=== PATIENT | male | born 1945 | race Caucasian/White ===

== ENCOUNTER 2023-10-20 11:29 | Day surgery (SDC) | payer MEDICARE, SELFPAY ==
--- NOTE | 2023-10-20 11:48 | FL_ITS ---
[address] [address] Patient Name: FRANCHECSA BUTLER MRN: [id number] date: 1945 Sex: M Assigned Patient Location: [place] Current Patient Location: Accession/Order Number: [id number] Exam Date: 10/20/2023 13:00 Report Date: 10/20/2023 14:52 At the request of: VALE COPE Procedure: FL hip inj RT EXAMINATION: FL hip inj RT HISTORY: Right Hip Osteoarthritis COMPARISON: No relevant comparison available. FLUORO DOSE: At 0.59 minutes. Single image TECHNIQUE: A joint injection was performed in the usual sterile manner after obtaining informed consent. Standard level fluoroscopic mode of operation utilized. FINDINGS: JOINT: Right hip. NEEDLE: 22 gauge, 3.5 spinal needle. MEDICATION: 6 cc 1% buffered lidocaine for subcutaneous anesthesia. 3 mL Omnipaque 240. 40 mg Kenalog. 2 mm 0.5% bupivacaine TECHNIQUE: Anterior approach with prior localization of the femoral artery. A single stick was successful in gaining access to the joint space. CLINICAL: 6 out of 10 pain before the injection. 2 out of 10 pain following the injection COMPLICATIONS: None. OTHER: Negative. FL/FL hip inj RT IMPRESSION: Technically successful right hip arthrogram Electronically authenticated by: TOM NEW Date: 10/20/2023 14:52
[2023-10-20] MEDS: BUPIVACAINE HCL 0.5% PF 50 MG/10 ML VIAL 2 ML INJ (13:20)
[2023-10-20] MEDS: TRIAMCINOLONE ACETONIDE 40 MG/ML VIAL INJ (13:20)
[2023-10-20] MEDS: LIDOCAINE HCL 10 ML, SODIUM BICARBONATE 1 MEQ INJ (13:20)
--- NOTE | 2023-10-20 14:20 | SUR.PREOP ---
10/16/23 Pt instructed on procedure, date, time, and prep. Faxed prep orders to [facility] . They will hold ASA x 3 days prior to procedure.
== END 2023-10-20 13:50 | disposition home or self-care (01) ==
PROVIDERS: Radiology Diagnostic Radiology; Visit Provider Orthopaedic Surgery
DX: M16.11 Unilateral primary osteoarthritis, right hip (principal)
CPT/HCPCS: 20610; 77002; J0665; J3301; Q9966